=== PATIENT | male | born 1965 | race African-American/Black ===

== ENCOUNTER 2019-07-14 11:13 | Emergency (ER) | payer BC ==
--- NOTE | 2019-07-14 11:19 | PDOC ---
History of Present Illness - General Chief Complaint: Syncope/Near Syncope Stated Complaint: SYNCOPE Time Seen by Provider: 07/14/19 11:19 - History of Present Illness Initial Comments: 07/14/19 11:20 Chief complaint: Head injury. Had appointment with his primary physician because of pain in his right great toe HPI: Patient was being examined by his doctor at doctor's office, felt faint and passed out, falling from the stretcher and striking his head on the floor. Woke up immediately, no confusion, visual or focal neurologic symptoms, or headache. Has had pain in his right great toe for a few days. No specific injury. No swelling redness or other sign of inflammation. No history of gout or elevated uric acid. No diuretics. Does not eat an excessive amount of red meat or organ meats. Review of systems: Denies fever/chills, headache, sore throat, cough, chest pain, shortness of breath, abdominal pain, nausea, vomiting, diarrhea, visual or focal neurologic symptoms, unsteadiness of gait. Although striking his head on the floor when he fell, he denies a headache or neck pain Past medical history: Healthy male, no active medical problems. Social/family history reviewed and noncontributory Physical exam: Alert and oriented well-developed well-nourished no acute distress cheerful and cooperative. There is no confusion or drowsiness Afebrile, vital signs normal Head without visible or palpable sign of trauma PERRLA 4 mm, fundi benign with sharp disc margins and good central venous pulsations, ENT clear Neck without tenderness or deformity, full range of motion without pain Chest clear, full breath sounds bilaterally, no rib cage or chest wall deformity or point tenderness CV regular without murmur rub or gallop Abdomen soft nontender without mass organomegaly Neurological C2 to 12 intact. Strength full and symmetric. No focal sensory or motor deficits. Gait stable and unimpaired. Skin clear, no rash, adequate turgor and wet mucous membranes Impression: Vasovagal syncope, minor head injury, no sign of significant intracranial injury or neurologic deficit. Elevated uric acid suggest possible gout. Plan: EKG and head CT. CBC chemistries and uric acid. Further evaluation and treatment depending on results. 07/14/19 11:33 07/14/19 12:44 Past History - Past Medical History Allergies/Adverse Reactions: Allergies Allergy/AdvReac Type Severity Reaction Status Date / Time No Known Allergies Allergy Verified 07/14/19 11:15 Home Medications: Ambulatory Orders Ibuprofen 800 mg PO TID #20 tablet 07/14/19 Anemia: Yes ([facility] DEFICEIN[facility]) Asthma: No Cancer: No Cardiac Disorders: Yes (MURMUR) CVA: No COPD: No CHF: No Dementia: No Diabetes: No GI Disorders: Yes (POLYPS) Disorders: No HTN: No Hypercholesterolemia: No Liver Disease: No Seizures: No Thyroid Disease: No - Surgical History Abdominal Surgery: No Appendectomy: No Cardiac Surgery: No Cholecystectomy: No Lung Surgery: No Neurologic Surgery: No Orthopedic Surgery: Yes (FX LEFT ARM, CASTED IN ER) - Psycho Social/Smoking Cessation Hx Smoking History: Never smoked Have you smoked in the past 12 months: No Hx Alcohol Use: Yes (WINE SOCIALLY) Drug/Substance Use Hx: No Substance Use Type: None Hx Substance Use Treatment: No ED Treatment Course - LABORATORY CBC & Chemistry Diagram: 07/14/19 11:45 07/14/19 11:45 Medical Decision Making - Medical Decision Making 07/14/19 11:25 EKG: Normal sinus rhythm 74/min. Normal axes and intervals. No ST-T wave changes. Normal EKG 07/14/19 12:45 CBC and chemistries including cardiac enzymes without significant abnormalities Most likely diagnoses are vasovagal syncope and gout. Medication as directed and follow-up with primary physician. Discharged in no significant pain or other distress with to follow-up as directed Discharge - Discharge Information Problems reviewed: Yes Clinical Impression/Diagnosis: Vasovagal syncope Gout Qualifiers: Gout site: toe Gout etiology: idiopathic Chronicity: acute Laterality: right Qualified Code(s): M10.071 - Idiopathic gout, right ankle and foot Condition: Stable Disposition: HOME - Admission No - Additional Discharge Information Prescriptions: Ibuprofen 800 mg PO TID #20 tablet - Follow up/Referral Referrals: Jerel Saldaña MD [Primary Care Provider] - 1 week - Patient Discharge Instructions Patient Printed Discharge Instructions: DI for Syncope in Adults (Fainting), Low-Purine Diet, DI for Gout Additional Instructions: Testing indicates you had a fainting episode without any significant injury and no sign of heart or neurological disease. Blood test reveals an elevated uric acid which makes it possible that you have gout as the cause of your foot pain. Take anti-inflammatory as directed, modify diet, and follow-up with Dr. Austin. You should notice improvement in your pain after 2 or 3 days. - Post Discharge Activity
[2019-07-14 11:21] VITALS: BMI 28.1
[2019-07-14 12:18] LABS: BASO % 4.3 % (0-2.0); EOS % 0.1 % (0-4.5); HEMATOCRIT 44.2 % (35.4-49); HEMOGLOBIN 14.1 GM/dl (11.7-16.9); LYMPH % 11.8 % (8-40); MCH 28.4 pg (25.7-33.7); MCHC 31.9 g/dl (32.0-35.9); MEAN CELL VOLUME 88.9 fl (80-96); MEAN PLT VOLUME 9.6 fl (7.5-11.1); MONO % 4.2 % (3.8-10.2); NEUT % 79.6 % (42.8-82.8); PLATELET COUNT 161 K/MM3 (134-434); RBC 4.97 M/mm3 (4.00-5.60); RDW 12.3 % (11.9-15.9); WHITE BLOOD COUNT 10.3 K/mm3 (4.0-10.8)
[2019-07-14 12:21] LABS: ALBUMIN 4.5 g/dl (3.4-5.0); CREATININE 1.2 mg/dl (0.55-1.3); POTASSIUM 4.2 mmol/L (3.5-5.1); TOT PROT 7.7 g/dl (6.4-8.2); URIC ACID 7.4 mg/dl (2.6-7.2)
[2019-07-14 12:35] VITALS: BP 142/75; PULSE 85
[2019-07-14 13:44] VITALS: TEMP 97.8
--- NOTE | 2019-07-15 11:29 | EKG ---
Test Reason : Blood Pressure : / mmHG Vent. Rate : 074 BPM Atrial Rate : 074 BPM P-R Int : 138 ms QRS Dur : 084 ms QT Int : 358 ms P-R-T Axes : 072 003 046 degrees QTc Int : 397 ms NORMAL SINUS RHYTHM NORMAL ECG NO PREVIOUS ECGS AVAILABLE Confirmed by MD Lars, Aaron ([id number]) on 07/15/2019 11:29:26 AM Referred By: JOHN KNOX Confirmed By:Aaron Sousa MD
== END 2019-07-14 13:00 | disposition home or self-care (01) ==
LOC: FER 11:13
DX: R42 Dizziness and giddiness (principal); D50.9 Iron deficiency anemia, unspecified; M10.071 Idiopathic gout, right ankle and foot; R01.1 Cardiac murmur, unspecified
CPT/HCPCS: 36415; 70450-TC; 80053; 82550; 82553; 84484; 84550; 85025; 93005; 99285-25